=== PATIENT | male | born 1960 | race African-American/Black ===

== ENCOUNTER 2018-07-28 12:08 | Day surgery (SDC) | payer OTHER ==
[2018-07-28 12:48] VITALS: BMI 25.0
[2018-07-28 14:14] VITALS: TEMP 97.7
--- NOTE | 2018-07-28 14:25 | PROC ---
Endoscopy Procedure Endoscopy procedure completed. Please see scanned procedure report.
[2018-07-28 14:47] VITALS: BP 177/94; PULSE 59
--- NOTE | 2018-07-30 16:42 | PATH ---
Surgical Pathology Report Patient Name: NAHUM WILKERSON [facility]. Rec. #: [id number] /Age/Gender: 1960 (Age: 58) / M Account: [id number] Location: [facility]-ENDOSCOPY Taken: 07/28/2018 Received: 07/29/2018 Reported: 07/30/2018 Physicians: Kip Holden M.D. Specimen(s) Received POLYP SIGMOID Clinical History Colon cancer screening Postoperative diagnosis: Diverticulosis, polyp Final Diagnosis SIGMOID COLON, POLYP, BIOPSY: HYPERPLASTIC POLYP. Electronically Signed Adelia Mercedes M.D. Gross Description Received in formalin, labeled "biopsy sigmoid polyp" is a george, irregular portion of soft tissue measuring 0.3 cm. in greatest dimension. The specimen is submitted in toto in one cassette. 07/29/201807/29/2018
== END 2018-07-28 14:47 | disposition home or self-care (01) ==
LOC: JASU-ENDO 12:08
PROVIDERS: ATTEND Internal Medicine Gastroenterology
PROC: 0DBN8ZX Excision of Sigmoid Colon, Via Natural or Artificial Opening Endoscopic, Diagnostic (ICD-10-PCS; principal; 2018-07-28 14:00)
DX: Z12.11 Encounter for screening for malignant neoplasm of colon (principal); D12.5 Benign neoplasm of sigmoid colon; K57.30 Diverticulosis of large intestine without perforation or abscess without bleeding
CPT/HCPCS: 88305-TC

== ENCOUNTER 2018-09-08 05:20 | Day surgery (SDC) | payer OTHER ==
[2018-09-05 18:13] VITALS: BMI 24.2
[2018-09-08] MEDS ORDERED: MIDAZOLAM HCL 2 MG/2 ML SINGLE DOSE VIAL ONE ×3 (12:20→13:07)
[2018-09-08] MEDS ORDERED: PROPOFOL 20 ML ONE (12:20)
[2018-09-08] MEDS ORDERED: ePHEDrine SULFATE 50 MG/1 ML AMPULE ONE (13:56)
--- NOTE | 2018-09-08 15:06 | OP ---
Operative Note - Note: Operative Date: 09/08/18 Pre-Operative Diagnosis: bph Operation: transurethral resection and vaporization of the prostate with bipolar system Post-Operative Diagnosis: Same as Pre-op Surgeon: Jorge Ramos Anesthesia: Spinal Estimated Blood Loss (mls): 50 Drains & Tubes with Location: 24 fr rose Operative Report Dictated: Yes
[2018-09-08 18:11] VITALS: BP 151/95; PULSE 63; TEMP 98.3
--- NOTE | 2018-09-09 01:30 | OP ---
DATE OF OPERATION: 09/08/2018 PREOPERATIVE DIAGNOSES: Benign prostatic hypertrophy and prostate cancer. POSTOPERATIVE DIAGNOSES: Benign prostatic hypertrophy and prostate cancer. ATTENDING PHYSICIAN: Nasima Ramos MD ANESTHESIA: Spinal. PROCEDURE: Transurethral resection and vaporization of the prostate utilizing bipolar system. DESCRIPTION OF OPERATION: The patient was brought in the operating room, placed in supine position on the operating room table. Anesthesia and preoperative antibiotics were administered without complications. Patient was then placed in the dorsal lithotomy position and prepped and draped in the usual sterile manner. A resectoscope was placed under visualization into the bladder. The bladder was investigated and noted to have no evidence of stones or neoplasm. A 3+ obstructive prostate was noted. Resection of the prostate in order to debulk the prostate was performed initially. The margins of the resection were the bladder neck proximally and the verumontanum distally. The resection was performed in a 360-degree fashion. The resection was taken down to the level of the pseudocapsule of the prostate. Once this was performed, all prostatic chips were evacuated from the bladder utilizing the [address] evacuator. At this point, the working element, which had been the loop, was changed to a button. Vaporization and cauterization was then ensured utilizing the button element of the bipolar system. Residual tissue was vaporized, and excellent hemostasis was attained within the prostatic fossa. The margins of the vaporization and cauterization were the bladder neck proximally and the verumontanum distally. This was done again in a 360-degree fashion. Excellent hemostasis was attained. The bladder was investigated and noted to have no evidence of residual prostatic tissue. There was no evidence of perforation of the bladder. The abdomen was soft on examination during the procedure. With excellent hemostasis, the resectoscope was removed, and a Banegas catheter placed, 30 mL were inflated into the balloon of the catheter and placed on light traction. Excellent drainage was noted which was light pink in color. The disposition of the patient was to the recovery room. The catheter had been placed to straight drainage. The patient will be observed in the recovery room and the postop area. If the patient continues to do well, he will be discharged home. NASIMA MATHEW M.D. [id number]
--- NOTE | 2018-09-11 17:22 | PATH ---
Surgical Pathology Report Patient Name: NAHUM WILKERSON [facility]. Rec. #: [id number] /Age/Gender: 1960 (Age: 58) / M Account: [id number] Location: [facility] SURGICAL Taken: 09/08/2018 Received: 09/09/2018 Reported: 09/11/2018 Physicians: Jorge Ramos Specimen(s) Received PROSTATE CHIPS Clinical History Benign prostatic hyperplasia with lower urinary tract Final Diagnosis PROSTATE, TRANSURETHRAL RESECTION OF PROSTATE: BENIGN PROSTATIC TISSUE WITH CHRONIC INFLAMMATION, CYSTIC CHANGES, GLANDULAR, FOCAL SQUAMOUS AND STROMAL HYPERPLASIA. Electronically Signed Adelia Mercedes M.D. Gross Description Received in formalin labeled "prostate tissue," is a 33 g, 13.5 x 10.0 x 0.6 cm aggregate of abundant george, irregular, firm to rubbery portions of tissue, consistent with prostate chips. A senior patient account representative portion is submitted in 13 cassettes. /09/09/2018 saudi09/09/2018
== END 2018-09-08 18:14 | disposition home or self-care (01) ==
LOC: JASU-SURG 05:20
PROVIDERS: ATTEND Urology
PROC: 0VT08ZZ Resection of Prostate, Via Natural or Artificial Opening Endoscopic (ICD-10-PCS; principal; 2018-09-08 11:00)
DX: C61 Malignant neoplasm of prostate (principal); N40.0 Benign prostatic hyperplasia without lower urinary tract symptoms
CPT/HCPCS: 94760

== ENCOUNTER 2019-04-13 10:25 | Day surgery (SDC) | payer OTHER | END 2019-04-13 14:51 | disposition home or self-care (01) | LOC: JASU-SURG 10:25 ==